=== PATIENT | male | born 1980 | race Caucasian/White ===

== ENCOUNTER 2018-10-22 15:01 | Emergency (ER) | payer OTHER, BC ==
[2018-10-22] MEDS: ONDANSETRON 4 MG INJ IV (16:14)
[2018-10-22] MEDS: morphine 4 MG/ML VIAL IV (16:14)
== END 2018-10-22 17:43 | disposition home or self-care (01) ==
LOC: E/R 15:01
DX: S93.402A Sprain of unspecified ligament of left ankle, initial encounter (principal); F17.210 Nicotine dependence, cigarettes, uncomplicated; S19.9XXA Unspecified injury of neck, initial encounter; S39.92XA Unspecified injury of lower back, initial encounter; R94.02 Abnormal brain scan; R40.2142 Coma scale, eyes open, spontaneous, at arrival to emergency department; R40.2362 Coma scale, best motor response, obeys commands, at arrival to emergency department; R40.2252 Coma scale, best verbal response, oriented, at arrival to emergency department; V03.10XA Pedestrian on foot injured in collision with car, pick-up truck or van in traffic accident, initial encounter; Z59.0 Homelessness; Z21 Asymptomatic human immunodeficiency virus [HIV] infection status
CPT/HCPCS: 70450; 72125; 72131; 73610; 96374; 96375; 99285-25